=== PATIENT | female | born 1950 | race African-American/Black ===

== ENCOUNTER 2017-09-08 05:18 | Emergency (ER) | payer MEDICARE, OTHER ==
[~2017-09-08] VITALS: Ht 165.1 cm; Wt 95.3 kg
--- NOTE | 2017-09-08 05:36 | Emergency Room Report ---
History of Present Illness General Chief Complaint: Hypertension Source: Patient Present Illness HPI Is a 67-year-old female with a history chronic atrial fibrillation on warfarin. She's not taking a beta torrie. She presents with palpitation and fast heartbeat. This occurred with her frequently. She came to the ER because her doctor told her to go to the ER. She fell better now. She woke up with heart beating really fast. A little dizzy. No syncope. No chest pain. No nausea no vomiting. Denies any other complaint. 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 Hx Diabetes: Yes Review of Systems Eye: Denies: eye pain, blurred vision ENT: Denies: ear pain, nose congestion, throat swelling Respiratory: Denies: cough, shortness of breath Cardiovascular: Reports: palpitations, Denies: chest pain Gastrointestinal: Denies: abdominal pain, diarrhea, nausea, vomiting Musculoskeletal: Denies: back pain, joint pain Skin: Denies: rash Neurological: Denies: headache, numbness Endocrine: Denies: increased thirst, increased urine Hematologic/Lymphatic: Denies: easy bruising All Other Systems: negative except mentioned in HPI Physical Exam Vital Signs Date Time Temp Pulse Resp B/P (MAP) Pulse Ox O2 Delivery O2 Flow Rate FiO2 09/08/17 05:23 98.1 100 18 146/78 98 Room Air vitals normal except for slight high blood pressure Sp02 EP Interpretation: reviewed, normal General Appearance: well appearing, no apparent distress, alert Head: normocephalic, atraumatic Eyes: bilateral eye PERRL, bilateral eye EOMI ENT: hearing grossly normal, normal pharynx Neck: full range of motion, supple, no meningismus Respiratory: chest non-tender, lungs clear, normal breath sounds Cardiovascular #1: no murmur, irregularly irregular Gastrointestinal: normal bowel sounds, non tender, no mass, no organomegaly, no bruit, non-distended Musculoskeletal: back normal, gait/station normal, normal range of motion Psychiatric: mood/affect normal Skin: warm/dry Medical Decision Making Diagnostic Impression: Primary Impression: Atrial fibrillation with normal ventricular rate ER Course Patient with atrial fibrillation with paroxysmal rapid A. fib. Resolved now. She is at her baseline. No evidence of ACS, PE, dissection. We'll check lab and INR. If normal we'll discharge home with prescription for beta torrie. EKG Diagnostic Results Rate: normal Rhythm: other - atrial fib Rhythm Strip Diag. Results Rhythm Strip Time: 05:46 EP Interpretation: yes Rate: 86 Rhythm: no PVC's, no ectopy Last Vital Signs Date Time Temp Pulse Resp B/P (MAP) Pulse Ox O2 Delivery O2 Flow Rate FiO2 09/08/17 05:23 98.1 100 18 146/78 98 Room Air Status: improved Disposition: HOME, SELF-CARE Condition: Stable Scripts Atenolol* (TENORMIN*) 25 Mg Tablet 25 MG ORAL DAILY for rapid palpitation, #30 TAB Prov: JAJA ROE M.D. 09/08/17 Additional Instructions: Followup with your DrMarisol in 2-3 days. Return if symptom worsen. JAJA ROE M.D. Sep 08, 2017 05:36
[2017-09-08 05:40] VITALS: BP 146/79
[2017-09-08] MEDS ORDERED: ATENOLOL25 MG ORAL (05:46)
[2017-09-08 06:07] LABS: BASOPHILS % (AUTO) 0.6 % (0.0-2.0); EOSINOPHILS % (AUTO) 1.8 % (0.0-3.0); LYMPHOCYTES % (AUTO) 22.7 % (20.0-45.0); MEAN CORPUSCULAR HEMOGLOBIN 28.6 PG (27.0-31.0); MEAN CORPUSCULAR HGB CONC 31.1 G/DL (32.0-36.0); MEAN CORPUSCULAR VOLUME 92 FL (80-99); MEAN PLATELET VOLUME 6.8 FL (6.5-10.1); MONOCYTES % (AUTO) 8.2 % (1.0-10.0); NEUTROPHILS % (AUTO) 66.6 % (45.0-75.0); PLATELET COUNT 213 K/UL (150-450); RED BLOOD COUNT 4.23 M/UL (4.20-5.40); RED CELL DISTRIBUTION WIDTH 13.7 % (11.6-14.8); WHITE BLOOD COUNT 7.8 K/UL (4.8-10.8)
[2017-09-08 06:14] LABS: ANION GAP 9 mmol/L (5-15); CALCIUM 9.2 MG/DL (8.5-10.1); CARBON DIOXIDE 29 MMOL/L (21-32); CHLORIDE 106 MMOL/L (98-107); CREATININE 1.1 MG/DL (0.55-1.30); GLOMERULAR FILTRATION RATE 59.8 mL/min (>60); POTASSIUM 3.4 MMOL/L (3.5-5.1); SODIUM 144 MMOL/L (136-145)
[2017-09-08 06:17] LABS: INR 1.3 (0.9-1.1); PROTHROMBIN TIME 13.4 SEC (9.30-11.50)
[2017-09-08 06:40] VITALS: BP 146/79
--- NOTE | 2017-09-08 16:33 | Cardiology Report ---
APPROVED REPORT EKG Measurement Heart [id number] Atrial fibrillation Nonspecific ST abnormality Abnormal ECG
== END 2017-09-08 06:40 | disposition home or self-care (01) ==
LOC: EMR 05:38
DX: I48.91 Unspecified atrial fibrillation (principal); Z79.01 Long term (current) use of anticoagulants; I10 Essential (primary) hypertension; E11.9 Type 2 diabetes mellitus without complications
CPT/HCPCS: 36415; 80048; 84484; 85025; 85610; 85730; 93005; 99283

== ENCOUNTER 2017-09-30 07:35 | Emergency (ER) | payer MEDICARE, OTHER ==
[~2017-09-30] VITALS: Ht 165.1 cm; Wt 93.0 kg
[~2017-09-30 07:35] MED LIST: ATENOLOL25 MG ORAL
[2017-09-30 07:45] VITALS: BP 143/83
[2017-09-30] MEDS ORDERED: HYDRALAZINE HC100 MG ORAL (07:51)
[2017-09-30] MEDS ORDERED: WARFARIN SODIUM2 MG ORAL (07:51)
[2017-09-30] MEDS ORDERED: GLIPIZIDE-METF1 EAC2 PO (07:51)
[2017-09-30] MEDS ORDERED: KLOR-CON 1010 MEQ ORAL (07:52)
[2017-09-30] MEDS ORDERED: PRAVASTATIN SOD20 M1 ORAL (07:52)
[2017-09-30] MEDS ORDERED: LOSARTAN POTASS50 MG ORAL (07:52)
[2017-09-30] MEDS ORDERED: ASPIR 8181 MG ORAL (07:52)
[2017-09-30] MEDS ORDERED: WARFARIN SODIUM5 MG ORAL (07:53)
--- NOTE | 2017-09-30 08:06 | Emergency Room Report ---
History of Present Illness General Chief Complaint: Chest Pain Source: Patient, Medical Record Present Illness HPI 67-year-old female with pmhx of HTN, atrial fibrillation on Coumadin, aortic and mitral valve replacement, p/w right arm pain for 3-4 hours. Pain started while she was grabbing to reach for her book. Localized to right arm, no radiation to back or other areas, sharp in nature, gradual in onset, lasted 3-4 , worsened with movement, denies SOB. Denies palpitations, diaphoresis, n/v. Denies fever, chills, cough, abd pain. Denies trauma. Last stress test was less than 6 months ago which was negative. Denies smoking, no family history of cardiac disease at a young age. Allergies: Coded Allergies: No Known Allergies (Unverified , 09/08/17) Patient History Past Medical History: see triage record Past Surgical History: none Pertinent Family History: none Reviewed Nursing Documentation: PMH: Agreed, PSxH: Agreed Nursing Documentation-PMH Past Medical History: No History, Except For Hx Hypertension: Yes - artifial mitral valve and aortic valve Hx Diabetes: Yes Review of Systems All Other Systems: negative except mentioned in HPI Physical Exam Vital Signs Date Time Temp Pulse Resp B/P (MAP) Pulse Ox O2 Delivery O2 Flow Rate FiO2 09/30/17 07:39 98.1 85 14 179/84 98 Room Air Sp02 EP Interpretation: reviewed, normal General Appearance: alert, GCS 15, non-toxic, mild distress Head: normocephalic, atraumatic Eyes: bilateral eye normal inspection, bilateral eye PERRL, bilateral eye EOMI ENT: normal ENT inspection, normal pharynx, normal voice, moist mucus membranes Neck: normal inspection, full range of motion, supple Respiratory: normal inspection, lungs clear, normal breath sounds, no respiratory distress, no retraction, no wheezing, speaking full sentences, chest symmetrical Cardiovascular #1: no edema, normal capillary refill, systolic murmur, irregularly irregular Cardiovascular #2: 2+ radial (R), 2+ radial (L) Gastrointestinal: normal inspection, non tender, soft, non-distended, no guarding Musculoskeletal: other - Right proximal humerus tender to palpation, no swelling noted, no erythema, full range of motion, tender in the muscular area, distal pulses intact Neurologic: normal inspection, alert, oriented x3, responsive, motor strength/ tone normal, sensory intact, normal gait, speech normal Psychiatric: normal inspection, judgement/insight normal, memory normal Skin: normal inspection, normal color, no rash, warm/dry, well hydrated, normal turgor Medical Decision Making Diagnostic Impression: Primary Impression: Arm pain Additional Impression: Subtherapeutic international normalized ratio (INR) ER Course 67-year-old female presenting with right arm pain DDX: Musculoskeletal, fracture, contusion, arthritis, ACS vs. CHF vs. pneumonia At this time physical examination and history is more likely to be musculoskeletal in nature, patient is tender in her arm Plan: IV access, obtain labs including troponin, EKG, CXR PAIN CONTROL WITH TYLENOL ER course: Labs: troponin negative Patient was treated with Tylenol. Patient remained chest pain free during ED stay. Pain in arm improved Disposition: Patient will be discharged to home. Strict precautions discussed with patient on when to emergently return to the ED : this includes worsening/severe chest pain, palpitations, shortness of breath, syncopal episodes, fever or chills, which may indicate severe illness. Patient verbalized understanding. Patient instructed to follow up with their PMD within the next 2 days. Please note that this Emergency Department Report was dictated using [employer] nocturnist physician technology software, occasionally this can lead to erroneous entry secondary to interpretation by the dictation equipment. EKG Diagnostic Results EP Interpretation: Yes Rate: normal Rhythm: Atrial fibrillation ST Segments: No acute changes ASA given to patient: No Rhythm Strip EP Interpretation: Yes Rate: 77 Rhythm: Atrial fibrillation Chest X-ray CXR: Ordered: Yes 1 view Indication: Chest pain EP interpretation: Yes Interpretation: Cardiomegaly, pulmonary vascular congestion Impression: Cardiomegaly and pulmonary vascular congestion Electronically signed by Flori Kelley MD Xray: Right humerus 2 view Indication: Pain EP Interpretation: Yes Interpretation: Degenerative disease, intact cortex, no dislocation, fracture Impression: Degenerative disease Electronically signed by Flori Kelley MD Laboratory Tests Test 09/30/17 07:58 09/30/17 08:15 White Blood Count 7.6 K/UL (4.8-10.8) Red Blood Count 4.24 M/UL (4.20-5.40) Hemoglobin 12.1 G/DL (12.0-16.0) Hematocrit 38.9 % (37.0-47.0) Mean Corpuscular Volume 92 FL (80-99) Mean Corpuscular Hemoglobin 28.5 PG (27.0-31.0) Mean Corpuscular Hemoglobin Concent 31.0 G/DL (32.0-36.0) L Red Cell Distribution Width 13.3 % (11.6-14.8) Platelet Count 206 K/UL (150-450) Mean Platelet Volume 6.9 FL (6.5-10.1) Neutrophils (%) (Auto) 65.5 % (45.0-75.0) Lymphocytes (%) (Auto) 22.6 % (20.0-45.0) Monocytes (%) (Auto) 8.6 % (1.0-10.0) Eosinophils (%) (Auto) 2.3 % (0.0-3.0) Basophils (%) (Auto) 0.9 % (0.0-2.0) Prothrombin Time 17.0 SEC (9.30-11.50) H Prothrombin Time INR 1.6 (0.9-1.1) H PTT 34 SEC (23-33) H Sodium Level 141 MMOL/L (136-145) Potassium Level 3.4 MMOL/L (3.5-5.1) L Chloride Level 104 MMOL/L (98-107) Carbon Dioxide Level 26 MMOL/L (21-32) Anion Gap 11 mmol/L (5-15) Blood Urea Nitrogen 21 mg/dL (7-18) H Creatinine 1.1 MG/DL (0.55-1.30) Estimate Glomerular Filtration Rate 59.8 mL/min (>60) Glucose Level 135 MG/DL (74-106) H Calcium Level 8.7 MG/DL (8.5-10.1) Total Bilirubin 0.4 MG/DL (0.2-1.0) Aspartate Amino Transferase (AST) 22 U/L (15-37) Alanine Aminotransferase (ALT) 20 U/L (12-78) Alkaline Phosphatase 85 U/L (46-116) Total Creatine Kinase 116 U/L (26-308) Creatine Kinase MB 0.6 NG/ML (0.0-3.6) Creatine Kinase MB Relative Index 0.5 Troponin I 0.003 ng/mL (0.000-0.056) Pro-B-Type Natriuretic Peptide 913 pg/mL (0-125) H Total Protein 8.2 G/DL (6.4-8.2) Albumin 3.6 G/DL (3.4-5.0) Globulin 4.6 g/dL Albumin/Globulin Ratio 0.8 (1.0-2.7) L Urine Color Yellow Urine Appearance Clear Urine pH 6 (4.5-8.0) Urine Specific Flora 1.020 (1.005-1.035) Urine Protein 2+ (NEGATIVE) H Urine Glucose (UA) Negative (NEGATIVE) Urine Ketones Negative (NEGATIVE) Urine Occult Blood Negative (NEGATIVE) Urine Nitrite Negative (NEGATIVE) Urine Bilirubin Negative (NEGATIVE) Urine Urobilinogen Normal MG/DL (0.0-1.0) Urine Leukocyte Esterase Negative (NEGATIVE) Urine RBC 0-2 /HPF (0 - 2) Urine WBC 5-10 /HPF (0 - 2) H Urine Squamous Epithelial Cells Few /LPF (NONE/OCC) Urine Bacteria Few /HPF (NONE) Last Vital Signs Date Time Temp Pulse Resp B/P (MAP) Pulse Ox O2 Delivery O2 Flow Rate FiO2 09/30/17 07:39 98.1 85 14 179/84 98 Room Air Disposition: HOME, SELF-CARE Condition: Improved Flori Kelley M.D. Sep 30, 2017 08:06
[2017-09-30 08:10] LABS: BASOPHILS % (AUTO) 0.9 % (0.0-2.0); EOSINOPHILS % (AUTO) 2.3 % (0.0-3.0); LYMPHOCYTES % (AUTO) 22.6 % (20.0-45.0); MEAN CORPUSCULAR HEMOGLOBIN 28.5 PG (27.0-31.0); MEAN CORPUSCULAR VOLUME 92 FL (80-99); MEAN PLATELET VOLUME 6.9 FL (6.5-10.1); MONOCYTES % (AUTO) 8.6 % (1.0-10.0); NEUTROPHILS % (AUTO) 65.5 % (45.0-75.0); PLATELET COUNT 206 K/UL (150-450); RED BLOOD COUNT 4.24 M/UL (4.20-5.40); RED CELL DISTRIBUTION WIDTH 13.3 % (11.6-14.8); WHITE BLOOD COUNT 7.6 K/UL (4.8-10.8)
[2017-09-30 08:17] LABS: INR 1.6 (0.9-1.1)
[2017-09-30 08:29] LABS: ANION GAP 11 mmol/L (5-15); CALCIUM 8.7 MG/DL (8.5-10.1); CARBON DIOXIDE 26 MMOL/L (21-32); CHLORIDE 104 MMOL/L (98-107); CREATININE 1.1 MG/DL (0.55-1.30); GLOMERULAR FILTRATION RATE 59.8 mL/min (>60); POTASSIUM 3.4 MMOL/L (3.5-5.1); SODIUM 141 MMOL/L (136-145)
[2017-09-30 08:44] LABS: ALANINE AMINOTRANSFERASE 20 U/L (12-78); ALBUMIN/GLOBULIN RATIO 0.8 (1.0-2.7); ASPARTATE AMINO TRANSFERASE 22 U/L (15-37); CKMB 0.6 NG/ML (0.0-3.6); TOTAL PROTEIN 8.2 G/DL (6.4-8.2)
[2017-09-30 09:18] VITALS: BP 143/83
[2017-09-30 09:23] LABS: APPEARANCE,URINE CLEAR; KETONES,URINE NEGATIVE (NEGATIVE); LEUKOCYTE ESTERASE ,URINE NEGATIVE (NEGATIVE); NITRITE,URINE NEGATIVE (NEGATIVE); PH,URINE 6 (4.5-8.0); PROTEIN,URINE 2+ (NEGATIVE); UROBILINOGEN,URINE NORMAL MG/DL (0.0-1.0)
[2017-09-30 09:31] LABS: BACTERIA,URINE FEW /HPF; RBC,URINE 0-2 /HPF (0 - 2); SQUAMOUS EPITHELIAL CELL,UR FEW /LPF (NONE/OCC)
--- NOTE | 2017-09-30 10:33 | Diagnostic Imaging Report ---
Indications: PAIN Technique: Two views of the right humerus Comparison: None Findings: No acute fractures. No dislocations. Slight irregularity of the greater tuberosity, humeral head, and acromion likely reflect degenerative change. No radiopaque foreign body Impression: No acute process
--- NOTE | 2017-09-30 15:54 | Diagnostic Imaging Report ---
Indication: Chest pain Technique: One view of the chest Comparison: none Findings: There is a contour bulge of the mediastinal silhouette in the left aortopulmonary window region. The heart is overall mildly enlarged. Is equivocal minimal interstitial congestion. Pleural spaces are clear. There is evidence of prior valve repair and median sternotomy Impression: Contour bulge in the left aorta pulmonary window. Possibilities include mass, aneurysm, enlarged left atrial appendage, enlarged left pulmonary artery. Recommend comparison with any prior exams may be available, consider CT for further evaluation as clinically indicated Evidence of prior cardiac surgery Equivocal borderline interstitial congestion Findings discussed by phone with Dr. Chi in the emergency room at the time of interpretation
--- NOTE | 2017-10-04 15:01 | Cardiology Report ---
APPROVED REPORT EKG Measurement Heart [id number] Atrial fibrillation Abnormal ECG
== END 2017-09-30 09:25 | disposition home or self-care (01) ==
LOC: EMR 08:16
DX: M79.601 Pain in right arm (principal); I48.91 Unspecified atrial fibrillation; I10 Essential (primary) hypertension; Z79.01 Long term (current) use of anticoagulants; Z95.2 Presence of prosthetic heart valve; E11.9 Type 2 diabetes mellitus without complications
CPT/HCPCS: 36415; 71010; 80053; 81003; 82550; 82553; 83880; 84484; 85025; 85610; 85730; 93005; 99284